=== PATIENT | male | born 1950 | race Caucasian/White ===

== ENCOUNTER 2019-10-17 08:34 | Day surgery (SDC) | payer MEDICARE, OTHER ==
[~2019-10-17] VITALS: Ht 190.5 cm; Wt 88.9 kg
--- NOTE | 2019-10-17 10:38 | NUR ---
10/17/19 1038 Sheets,Polina 1023 PT ARRIVED TO PACU ON 3L VIA NC, PT ASLEEP AND VSS. RESP EVEN AND UNLABORED. PT PASSING LARGE AMOUNT OF GAS.
--- NOTE | 2019-10-18 08:17 | OR ---
[facility] [address] [place], [place] [address] Signed DATE OF OPERATION: 10/17/2019 SURGEON: Raymon Lazaro MD PREOPERATIVE DIAGNOSES: 1. Left upper quadrant abdominal pain. 2. Constipation. POSTOPERATIVE DIAGNOSES: 1. Moderate sigmoid diverticulosis. 2. Moderate internal hemorrhoids. 3. 4 mm polyp at 10 cm. 4. 1 cm pedunculated polyp at 30 cm (tattoo). 5. 4 mm polyps x4 in proximal right colon/cecum. 6. 4 mm polyp at 32 cm. 7. 6 mm polyp at 75 cm. DESCRIPTION OF PROCEDURE: Colonoscopy with hot biopsy and snare polypectomy at 30 cm, 75 cm, and injection of tattoo at 30 cm. ESTIMATED BLOOD LOSS: None. INDICATIONS: Marcelo is a 69-year-old gentleman, asked to see me for his initial colonoscopy. He is having left upper quadrant abdominal pain along with intermittent constipation. He tends to downplay most of his symptoms. He said he has pretty much been healthy his whole life, so he has avoided doctors. However, he does complain about claudication in the calves. He had an abdominal ultrasound in June 2019 and it was all negative. Consequently, he was asked to see me for his colonoscopy. He told me there is no family history of colon cancer or polyps. In the office, I gave him a pamphlet on colonoscopy. We looked at that together along with the risks including, but not limited to gas bloating, crampy abdominal pain, bleeding, perforation requiring surgery, and missed diagnosis. He also understands the need for IV conscious sedation. He had expressed understanding and wished to proceed. PROCEDURE NOTE: Marcelo was taken into our endoscopy suite and placed in the left lateral decubitus position. He was given IV sedation with 10 mg of Versed and 175 mcg of fentanyl. A Electronically Signed By: RAYMON LAZARO MD 10/18/19 0817 PATIENT NAME: MARCELO FRANKLIN OPERATIVE REPORT DATE OF : 50 REPORT #: [id number] PHYSICIAN: RAYMON LAZARO MD PCP: OLGA THAO MD REPORT IS CONFIDENTIAL AND NOT TO BE RELEASED WITHOUT AUTHORIZATION [facility] [address] [place], [place] [address] Signed digital rectal exam was performed. His prostate is a little bit enlarged. It is moderate indurated and left slightly more prominent than the right. The adult colonoscope was then introduced and advanced all around into the cecum under direct visualization of camera without difficulty. His prep was good. A couple areas of liquid stool most of which was suctioned out. We removed the above polyps mostly with the help of hot biopsy forceps. We did use the snare at 75 cm and 30 cm. We also left a tattoo at 30 cm to jorge its location. Upon retroflexion of scope in the rectum, he does have moderate internal hemorrhoids. After this, we also saw that he has moderate sigmoid diverticulosis. They are moderate size moderate in number, and scattered about. After this, the gas was suctioned out and the colonoscope removed. Marcelo tolerated the procedure quite well. RECOMMENDATIONS: I will see Marcelo back in my office in 7 to 14 days to review his results. Raymon L Faraz, MD ALB/MODL /[id number] cc: MD Raymon Swartz MD Copies: OLGA THAO DMD, ANDREW L MD ~ Electronically Signed By: RAYMON LAZARO MD 10/18/19 0817 PATIENT NAME: MARCELO FRANKLIN OPERATIVE REPORT DATE OF : 50 REPORT #: [id number] PHYSICIAN: RAYMON LAZARO MD PCP: OLGA THAO MD REPORT IS CONFIDENTIAL AND NOT TO BE RELEASED WITHOUT AUTHORIZATION
--- NOTE | 2019-10-21 17:47 | PATH ---
[facility] [address] [facility] [place], [place] [address] Signed SPECIMEN(S): A COLON POLYP AT 10 CM SPECIMEN(S): B COLON POLYP AT 30 CM SPECIMEN(S): C COLON POLYP AT 32 CM SPECIMEN(S): D COLON POLYP AT 75 CM SPECIMEN(S): E PROXIMAL ASCENDING POLYP SPECIMEN SOURCE: A. COLON POLYP AT 10 CM B. COLON POLYP AT 30 CM C. COLON POLYP AT 32 CM D. COLON POLYP AT 75 CM E. PROXIMAL ASCENDING POLYP CLINICAL HISTORY: Left lower quadrant pain. MICROSCOPIC DESCRIPTION: Histologic sections of all submitted blocks are examined by light microscopy. These findings, together with the gross examination, support the pathologic diagnosis. FINAL PATHOLOGIC DIAGNOSIS: A. Colon polyp at 10 cm, polypectomy: - Hyperplastic polyp. B. Colon polyp at 30 cm, polypectomy: - Tubular adenoma. C. Colon polyp at 32 cm, polypectomy: - Hyperplastic polyp. D. Colon polyp at 75 cm, polypectomy: - Fragments of tubular adenoma. E. Proximal ascending polyp, polypectomy: - Fragments of tubular adenoma. DDF:emb:C2NR GROSS DESCRIPTION: Five specimens are received in five containers, labeled "LB." A. The specimen, labeled "LB, colon polyp at 10 cm," is received in formalin and consists of a single 0.2 cm, peterson tissue fragment. The specimen is entirely submitted in cassette (A1). B. The specimen, labeled "LB, colon polyp at 30 cm," is received in formalin and consists of a 1.0 x 0.9 x 0.8 cm, dark brown, lobular polyp. The specimen is inked and sectioned. The specimen is PATIENT NAME: PIPPA FRANKLIN PATHOLOGY DATE OF : 50 REPORT #: [id number] PHYSICIAN: GEMA DELGADO PCP: OLGA THAO MD REPORT IS CONFIDENTIAL AND NOT TO BE RELEASED WITHOUT AUTHORIZATION [facility] [address] [place], [place] [address] Signed entirely submitted in cassette (B1). C. The specimen, labeled "LB, colon polyp at 32 cm," is received in formalin and consists of a single 0.3 cm, peterson-brown tissue fragment. The specimen is entirely submitted in cassette (C1). D. The specimen, labeled "LB, colon polyp at 75 cm," is received in formalin and consists of three, 0.2-0.5 cm, peterson-brown tissue fragments. The specimen is entirely submitted in cassette (D1). E. The specimen, labeled "LB, proximal ascending colon polyp," is received in formalin and consists of four, 0.3-0.4 cm, peterson-brown tissue fragments. The specimen is entirely submitted in cassette (E1). AM (under the direct supervision of a pathologist) The Gross Description was prepared using a voice recognition system. The report was reviewed for accuracy; however, sound-alike word errors, addition and/or deletions may occur. If there is any question about this report, please contact Client Services. PERFORMING LABORATORY: The technical component was performed by [facility], [address] [place] [id number] (County Nurse: Matilde Mejia MD; CLIA# [id number]). Professional interpretation was performed by [facility] [address] (County Nurse: Marc Pat M.D.; IA#: [id number]). Diagnostician: Yan Wilson DO Pathologist Electronically Signed 10/21/2019 Copies: ~ PATIENT NAME: PIPPA FRANKLIN PATHOLOGY DATE OF : 50 REPORT #: [id number] PHYSICIAN: GEMA PATHOLOGY PCP: OLGA THAO MD REPORT IS CONFIDENTIAL AND NOT TO BE RELEASED WITHOUT AUTHORIZATION
== END 2019-10-17 11:21 | disposition home or self-care (01) ==
LOC: OPS 08:34 → DS 08:43 → OPS 10:30 → DS 10:30 → OPS 11:21
PROVIDERS: Colon & Rectal Surgery
PROC: 0DBK8ZZ Excision of Ascending Colon, Via Natural or Artificial Opening Endoscopic (ICD-10-PCS; 2019-10-17)
PROC: 3E0H8GC Introduction of Other Therapeutic Substance into Lower GI, Via Natural or Artificial Opening Endoscopic (ICD-10-PCS; 2019-10-17)
PROC: 0DBE8ZX Excision of Large Intestine, Via Natural or Artificial Opening Endoscopic, Diagnostic (ICD-10-PCS; principal; 2019-10-17 10:30)
DX: D12.2 Benign neoplasm of ascending colon (principal); D12.6 Benign neoplasm of colon, unspecified; K59.00 Constipation, unspecified; K57.30 Diverticulosis of large intestine without perforation or abscess without bleeding; K64.8 Other hemorrhoids; N40.0 Benign prostatic hyperplasia without lower urinary tract symptoms; G35 Multiple sclerosis
CPT/HCPCS: 99153; G0500; J2250; J3010; J7121